=== PATIENT | male | born 1945 ===

== ENCOUNTER 2018-06-09 07:51 | Outpatient (CLI) | payer MEDICARE, SELFPAY | END 2018-06-09 07:52 | PROVIDERS: PCP Internal Medicine; Visit Provider Family Medicine | DX: Z48.812 Encounter for surgical aftercare following surgery on the circulatory system (principal) | CPT/HCPCS: 99305 ==

== ENCOUNTER 2018-06-10 15:33 | Outpatient (REF) | payer SELFPAY ==
[2018-06-10 17:26] LABS: Anion Gap 8.5 mmol/L (3-11); BUN 7 mg/dL (7-18); CO2 27.5 mmol/L (21.0-32.0); CREATININE 0.94 mg/dL (0.70-1.30); Calcium 8.3 mg/dL (8.5-10.1); Chloride 105 mmol/L (98-107); Glucose 120 mg/dL (70-100); Potassium 3.8 mmol/L (3.5-5.1); Sodium 141 mmol/L (136-145)
[2018-06-12 22:14] LABS: Result Negative; Specimen Description Feces
== END 2018-06-10 15:34 ==
LOC: LBN 15:33
PROVIDERS: PCP Internal Medicine; Visit Provider Family Medicine
DX: N18.9 Chronic kidney disease, unspecified (principal); R19.5 Other fecal abnormalities
CPT/HCPCS: 80048; 87230; 87324; 87798

== ENCOUNTER 2018-06-22 21:37 | Outpatient (REF) | payer MEDICARE, SELFPAY ==
[2018-06-22 22:19] LABS: Anion Gap 7.5 mmol/L (3-11); BUN 16 mg/dL (7-18); CO2 26.5 mmol/L (21.0-32.0); CREATININE 1.11 mg/dL (0.70-1.30); Calcium 9.2 mg/dL (8.5-10.1); Chloride 104 mmol/L (98-107); Glucose 113 mg/dL (70-100); Potassium 4.5 mmol/L (3.5-5.1); Sodium 138 mmol/L (136-145)
== END 2018-06-22 21:38 ==
LOC: LBN 21:37
PROVIDERS: PCP Internal Medicine; Visit Provider Family Medicine
DX: E87.6 Hypokalemia (principal)
CPT/HCPCS: 80048

== ENCOUNTER 2020-09-24 14:00 | Outpatient (REF) | payer MEDICARE, SELFPAY ==
[2020-09-28 07:21] LABS: Patient Race White; SARS-CoV-2 RNA Undetected (Undetected); SARS-CoV-2 Specimen Source Nasal
== END 2020-09-24 14:20 ==
LOC: NCHCN 14:00
PROVIDERS: PCP Internal Medicine; Visit Provider Internal Medicine
DX: Z11.59 Encounter for screening for other viral diseases (principal)
CPT/HCPCS: U0003